=== PATIENT | female | born 1990 | race African-American/Black ===

== ENCOUNTER 2018-10-22 22:45 | Emergency (ER) | payer MEDICAID ==
[~2018-10-22] VITALS: Ht 165.1 cm; Wt 84.4 kg
[2018-10-22 23:04] VITALS: Ht 165.1 cm; Wt 84.4 kg
[2018-10-23 00:37] VITALS: BP 151/104
== END 2018-10-23 00:37 | disposition home or self-care (01) ==
LOC: ED 22:45
DX: S51.812A Laceration without foreign body of left forearm, initial encounter (principal); W45.8XXA Other foreign body or object entering through skin, initial encounter; Y93.89 Activity, other specified; Y92.89 Other specified places as the place of occurrence of the external cause; Y99.8 Other external cause status
CPT/HCPCS: J2001

== ENCOUNTER 2018-10-24 17:51 | Emergency (ER) | payer MEDICAID ==
[~2018-10-24] VITALS: Ht 157.5 cm; Wt 86.2 kg
[2018-10-24 18:11] VITALS: Ht 157.5 cm; Wt 86.2 kg
[2018-10-24 18:46] VITALS: BP 155/106
== END 2018-10-24 18:44 | disposition left against medical advice (07) ==
LOC: ED 17:51
DX: Z53.21 Procedure and treatment not carried out due to patient leaving prior to being seen by health care provider (principal)

== ENCOUNTER 2019-03-25 04:14 | Emergency (ER) | payer MEDICAID ==
[~2019-03-25] VITALS: Ht 160 cm; Wt 90.3 kg
[2019-03-25 04:19] VITALS: Ht 160 cm; Wt 90.3 kg
[2019-03-25 04:57] LABS: BASOPHIL % 0.4 % (0-2); RED CELL DISTRIBUTION WIDTH 13.4 % (11.5-14.5)
[2019-03-25 05:00] LABS: PLATELET COUNT 491 x10^3mcL (130-400)
[2019-03-25 05:03] LABS: CALCIUM 8.3 mg/dL (8.5-10.1); CHLORIDE SERUM 101 mmol/L (98-107); CREATININE SERUM 0.9 mg/dL (0.6-1.0); GFR1 > 60 mL/min; GLUCOSE SERUM 107 mg/dL (74-106); POTASSIUM SERUM 3.3 mmol/L (3.5-5.1); SODIUM SERUM 135 mmol/L (136-145)
[2019-03-25 05:07] LABS: ALBUMIN 3.8 g/dL (3.4-5.0); ALKALINE PHOSPHATASE 54 U/L (46-116); ALT/SGPT 30 U/L (14-59); AST/SGOT 15 U/L (15-37); BILIRUBIN TOTAL 0.4 mg/dL (0.20-1.00); CHOLESTEROL 165 mg/dL (<200); HDL CHOLESTEROL 55 mg/dL (40-60); LIPASE 105 IU/L (73-393); TRIGLYCERIDES 51 mg/dL (<150)
[2019-03-25 05:16] LABS: T3 TOTAL 1.06 ng/mL
[2019-03-25 05:37] LABS: FREE T4 1.01 ng/dL (0.76-1.46); FREE THYROXINE INDEX 2.4 ug/dL (1.4-4.5); T4(THYROXINE) 6.9 ug/dL (4.7-13.3)
[2019-03-25 06:15] VITALS: BP 130/88
[2019-03-25 06:49] LABS: microscopic required? NO
[2019-03-25 07:08] LABS: UA SPECIFIC GRAVITY <=1.005 (1.005-1.035); urine erythrocyte NEGATIVE (NEGATIVE)
[2019-03-25 07:30] LABS: AMPHETAMINE QUAL UR NONE DETECTED (See below)
== END 2019-03-25 06:15 | disposition home or self-care (01) ==
LOC: ED 04:14
PROVIDERS: Specialist
DX: R07.89 Other chest pain (principal); R00.2 Palpitations; R05 Cough
CPT/HCPCS: 36415; 83880; 84439; 87804; J1885; Q0092

== ENCOUNTER 2019-10-26 09:25 | Emergency (ER) | payer MEDICAID ==
[~2019-10-26] VITALS: Ht 157.5 cm; Wt 88.5 kg
[2019-10-26 09:39] VITALS: Ht 157.5 cm; Wt 88.5 kg
[2019-10-26 11:25] VITALS: BP 136/86
== END 2019-10-26 11:25 | disposition home or self-care (01) ==
LOC: ED 09:25
DX: S89.92XA Unspecified injury of left lower leg, initial encounter (principal); S89.91XA Unspecified injury of right lower leg, initial encounter; S39.92XA Unspecified injury of lower back, initial encounter; R03.0 Elevated blood-pressure reading, without diagnosis of hypertension; V43.52XA Car driver injured in collision with other type car in traffic accident, initial encounter; Y93.I9 Activity, other involving external motion; Y92.488 Other paved roadways as the place of occurrence of the external cause; Y99.8 Other external cause status